=== PATIENT | female | born 1960 | race Caucasian/White ===

== ENCOUNTER → 2016-09-06 | Outpatient (CLI) | payer BC ==
--- NOTE | 2016-09-07 08:34 | MM ---
Reason for exam: screening (asymptomatic). Last mammogram was performed 1 year and 1 month ago. History: Patient is postmenopausal, has history of ovarian cancer at age 40, and is nulliparous. Family history of breast cancer in sister at age 50. Took hormonal contraceptives for 2 years beginning at age 22. Took estrogen for 6 months beginning at age 40. Physical Findings: A clinical breast exam by your physician is recommended on an annual basis and results should be correlated with mammographic findings. MG 3D Screening Mammo W/Cad Bilateral CC and MLO view(s) were taken. Prior study comparison: August 08, 2015, bilateral MG screening mammo w CAD. July 27, 2014, left breast MG work up mamm w CAD LT. The breast tissue is almost entirely fat. There is no discrete abnormality. No significant changes when compared with prior studies. ASSESSMENT: Negative, BI-RAD 1 RECOMMENDATION: Routine screening mammogram of both breasts in 1 year.
== END | disposition home or self-care (01) ==
LOC: RADMAMWWP 07:06
PROVIDERS: ATTEND Family Medicine
DX: Z12.31 Encounter for screening mammogram for malignant neoplasm of breast (principal)
CPT/HCPCS: 77063; G0202

== ENCOUNTER → 2016-09-12 | Day surgery (SDC) | payer BC ==
[2016-09-06 11:24] VITALS: BMI 25.4
[~2016-09-12] MED LIST: GLUCAGON 1 MG/ML VIAL ONE; LACTATED RINGERS 1,000 ML IV SCH; LIDOCAINE 1% 20 ML VIAL (10MG/ML) FOR IV START INTRADERMA PRN; PROPOFOL 10 MG/ML 20 ML VIAL IV ONE
[2016-09-12 11:39] VITALS: RESP 16; TEMP 98.3
--- NOTE | 2016-09-12 13:18 | P.GSHP ---
History of Present Illness H&P Date: 09/12/16 Chief Complaint: Screening colonoscopy This a 56-year-old female for from [facility]. Patient resents today for screening colonoscopy. She denies a significant checklist. She's never colonoscopy before. Past Medical History Past Medical History: Cancer Additional Past Medical History / Comment(s): hx ovarian cancer History of Any Multi-Drug Resistant Organisms: None Reported Past Surgical History: Hysterectomy Additional Past Surgical History / Comment(s): fatty tumor removed from back, surgery for endometriosis Past Anesthesia/Blood Transfusion Reactions: Motion Sickness Smoking Status: Never smoker - Past Family History Sister(s) Family Medical History: Cancer Brother(s) Family Medical History: Cancer Father Family Medical History: Cancer Medications and Allergies Home Medications Medication Instructions Recorded Confirmed Type Gabapentin 300 mg PO DAILY PRN 09/06/16 09/12/16 History busPIRone HCL 10 mg PO TID PRN 09/06/16 09/12/16 History Allergies Allergy/AdvReac Type Severity Reaction Status Date / Time No Known Allergies Allergy Verified 09/12/16 11:33 Surgical - Exam Vital Signs Temp Pulse Resp BP Pulse Ox 98.3 F 86 16 141/84 96 09/12/16 11:34 09/12/16 11:34 09/12/16 11:34 09/12/16 11:34 09/12/16 11:34 - General well developed, no distress - Eyes PERRL - ENT normal pinna - Neck no masses - Respiratory normal expansion - Cardiovascular Rhythm: regular - Abdomen Abdomen: soft, non tender Assessment and Plan Plan: We will perform screening colonoscopy.
--- NOTE | 2016-09-12 13:39 | P.OP ---
Date of Procedure: 09/12/16 Preoperative Diagnosis: Screening colonoscopy Postoperative Diagnosis: Normal colonoscopy to 40 cm. Tortuous bowel. Included colonoscopy Procedure(s) Performed: Screening colonoscopy Implants: Anesthesia: MAC Surgeon: Gagandeep Mitchell Pathology: none sent Condition: stable Disposition: PACU Indications for Procedure: Operative Findings: Description of Procedure: The patient's placed on the endoscopy table in the lateral position. She received IV sedation. Digital rectal exam was performed which revealed no abnormalities. The flexible colonoscope was then placed patient anus and passed throughout the colon. At 30 cm jaylene the scope B advanced due to a very twisted sigmoid colon. Several times made to maneuver the scope around this however however this wasn't possible. This point scope withdrawn and the pediatric scope was reinserted. The pediatric scope could only get to the 40 cm jaylene. The bowel tortuous and the scope could not maneuver the dense of the colon. At this point scope was withdrawn. The sigmoid colon and rectum appeared normal. Scope was withdrawn for patient. She was scheduled for a barium enema.
[2016-09-12 14:00] VITALS: PULSE 60
[2016-09-12 14:10] VITALS: BP 144/68
--- NOTE | 2016-09-12 16:54 | FL ---
EXAMINATION TYPE: FL barium enema w air contrast DATE OF EXAM: 09/12/2016 CLINICAL HISTORY: 56-year-old female incomplete routine screening colonoscopy. No biopsies were taken . Scope could only advance to 40 cm. TECHNIQUE: A double contrast barium enema study is performed. Total fluoroscopy time: 41 seconds. Total images: 39 COMPARISON: None. FINDINGS: Therapeutic Riding Instructor view of the abdomen shows overall non-obstructive bowel gas pattern. Residual gas see distentio n of the colon. Multiple surgical clips from retroperitoneal node dissection. Following administration of double contrast, there is extensive mucosal irregularity extending from t he mid sigmoid colon to the hepatic flexure causing limitation in evaluation. No large mass or polypo id lesion is seen. No constricting lesion. No significant diverticular disease. There is reflux of contrast into the appendix. IMPRESSION: 1. Limited exam due to either poor coating or suboptimal patient prep. Please refer to the exam image s. 2. No suspicious constricting lesion. Assessment for polyps is limited.
== END | disposition home or self-care (01) ==
LOC: ORWHC2ENDO 11:07
PROVIDERS: ATTEND Surgery
DX: Z12.11 Encounter for screening for malignant neoplasm of colon (principal); Q43.8 Other specified congenital malformations of intestine; Z85.43 Personal history of malignant neoplasm of ovary
CPT/HCPCS: 74280; J1610; J2704; G0104

== ENCOUNTER → 2017-09-27 | Outpatient (CLI) | payer BC ==
--- NOTE | 2017-10-01 13:24 | MM ---
Reason for exam: screening (asymptomatic). Last mammogram was performed 1 year and 1 month ago. History: Patient is postmenopausal, has history of ovarian cancer at age 40, and is nulliparous. Family history of breast cancer in sister at age 50. Took hormonal contraceptives for 2 years beginning at age 22. Took estrogen for 6 months beginning at age 40. Physical Findings: A clinical breast exam by your physician is recommended on an annual basis and results should be correlated with mammographic findings. MG 3D Screening Mammo W/Cad Bilateral CC and MLO view(s) were taken. Prior study comparison: September 06, 2016, bilateral MG 3d screening mammo w/cad. August 08, 2015, bilateral MG screening mammo w CAD. The breast tissue is heterogeneously dense. This may lower the sensitivity of mammography. There is no discrete abnormality. ASSESSMENT: Negative, BI-RAD 1 RECOMMENDATION: Routine screening mammogram of both breasts in 1 year.
== END | disposition home or self-care (01) ==
LOC: RADMAMWWP 11:54
PROVIDERS: ATTEND Family Medicine
DX: Z12.31 Encounter for screening mammogram for malignant neoplasm of breast (principal)
CPT/HCPCS: 77063; 77067

== ENCOUNTER → 2019-12-29 | Outpatient (CLI) | payer BC ==
--- NOTE | 2019-12-31 08:38 | MM ---
Reason for exam: screening (asymptomatic). Last mammogram was performed 2 years and 3 months ago. History: Patient is postmenopausal, has history of ovarian cancer at age 40, and is nulliparous. Family history of breast cancer in sister at age 50. Took hormonal contraceptives for 2 years beginning at age 22. Took estrogen for 6 months beginning at age 40. Physical Findings: A clinical breast exam by your physician is recommended on an annual basis and results should be correlated with mammographic findings. MG 3D Screening Mammo W/Cad Bilateral CC and MLO view(s) were taken. Prior study comparison: September 27, 2017, bilateral MG 3d screening mammo w/cad. September 06, 2016, bilateral MG 3d screening mammo w/cad. There are scattered fibroglandular densities. No significant changes when compared with prior studies. ASSESSMENT: Benign, BI-RAD 2 RECOMMENDATION: Routine screening mammogram of both breasts in 1 year.
== END | disposition home or self-care (01) ==
LOC: RADMAMWWP 08:27
PROVIDERS: ATTEND Family Medicine
DX: Z12.31 Encounter for screening mammogram for malignant neoplasm of breast (principal); Z80.3 Family history of malignant neoplasm of breast
CPT/HCPCS: 77063; 77067

== ENCOUNTER → 2020-12-30 | Outpatient (CLI) | payer BC ==
--- NOTE | 2021-01-02 11:21 | MM ---
Reason for exam: screening (asymptomatic). Last mammogram was performed 1 year ago. History: Patient is postmenopausal, has history of ovarian cancer at age 40, and is nulliparous. Family history of breast cancer in sister at age 50. Took hormonal contraceptives for 2 years beginning at age 22. Took estrogen for 6 months beginning at age 40. Physical Findings: A clinical breast exam by your physician is recommended on an annual basis and results should be correlated with mammographic findings. MG 3D Screening Mammo W/Cad Bilateral CC and MLO view(s) were taken. Prior study comparison: December 29, 2019, bilateral MG 3d screening mammo w/cad. September 27, 2017, bilateral MG 3d screening mammo w/cad. There are scattered fibroglandular densities. There is chronic nodularity in the right breast. No significant changes when compared with prior studies. ASSESSMENT: Benign, BI-RAD 2 RECOMMENDATION: Routine screening mammogram of both breasts in 1 year.
== END | disposition home or self-care (01) ==
LOC: RADMAMWWP 08:10
PROVIDERS: ATTEND Family Medicine
DX: Z08 Encounter for follow-up examination after completed treatment for malignant neoplasm (principal); Z80.3 Family history of malignant neoplasm of breast
CPT/HCPCS: 77063; 77067

== ENCOUNTER → 2022-05-30 | Outpatient (CLI) | payer SELFPAY ==
[2022-05-30 15:55] LABS: Calcium 9.3 mg/dL (8.7-10.3); Uric Acid 4.3 mg/dL (2.9-7.7)
[2022-05-30 20:10] LABS: Cancer Antigen 125 6.3 U/mL (0.0-30.1)
== END | disposition home or self-care (01) ==
LOC: LABWHC1 08:40
PROVIDERS: ATTEND Family Medicine
DX: R10.84 Generalized abdominal pain (principal); R53.82 Chronic fatigue, unspecified; Z85.43 Personal history of malignant neoplasm of ovary
CPT/HCPCS: 36415; 82306; 82310; 82533; 82627; 82784; 84550; 86001; 86304

== ENCOUNTER → 2023-08-01 | Outpatient (CLI) | payer BC ==
--- NOTE | 2023-08-01 10:28 | MM ---
Reason for Exam: Screening (asymptomatic). Last mammogram was performed 1 year(s) and 1 month(s) ago. Patient History: Menarche at age 14. Patient has no children. Left ovary removed at age 40. Right ovary removed at age 40. Hysterectomy at age 40. Postmenopausal. Ovarian cancer, age 40. Estrogen for 6 months starting at age 40. Hormonal Contraceptives, starting at age 22 for 2 years. Sister had breast cancer, age 50. Risk Values: Bibiana 5 year model risk: 2.9%. NCI Lifetime model risk: 13.5%. Prior Study Comparison: 08/08/2015 Bilateral Screening Mammogram, [facility]. 09/06/2016 Bilateral Screening Mammogram, [facility]. 09/27/2017 Bilateral Screening Mammogram, [facility]. 12/29/2019 Bilateral Screening Mammogram, [facility]. 12/30/2020 Bilateral Screening Mammogram, [facility]. 06/14/2022 Bilateral MG 3D screening mammo w/cad, [facility]. Tissue Density: There are scattered areas of fibroglandular density. Findings: Analyzed By CAD. There is no suspicious group of microcalcifications or new suspicious mass in either breast. Overall Assessment: Negative, BI-RAD 1 Management: Screening Mammogram of both breasts in 1 year. . Patient should continue monthly self-breast exams. A clinical breast exam by your physician is recommended on an annual basis. This exam should not preclude additional follow-up of suspicious palpable abnormalities. Note on Bibiana scores and lifetime risk: 1. A Bibiana score greater than 3% is considered moderate risk. If this is the case, consider specialist referral to assess eligibility for a risk reducing agent. 2. If overall lifetime risk for the development of breast cancer is 20% or higher, the patient may qualify for future screening with alternating mammogram and breast MRI. Electronically signed and approved by: William Swift M.D. Radiologis
== END | disposition home or self-care (01) ==
LOC: RADMAMWWP 07:51
PROVIDERS: ATTEND Family Medicine
DX: Z12.31 Encounter for screening mammogram for malignant neoplasm of breast (principal); Z80.3 Family history of malignant neoplasm of breast; Z78.0 Asymptomatic menopausal state
CPT/HCPCS: 77063; 77067